=== PATIENT | female | born 1980 | race Caucasian/White ===

== ENCOUNTER 2017-03-10 11:30 | Emergency (ER) | payer BC, MEDICAID ==
[~2017-03-10] VITALS: Ht 165.1 cm; Wt 63.5 kg
[2017-03-10 11:40] VITALS: BP 104/62
[2017-03-10 12:34] LABS: APPEARANCE,URINE TURBID (CLEAR); BILIRUBIN,URINE NEGATIVE (NEGATIVE); BLOOD, URINE NEGATIVE Ery/uL (NEGATIVE); COLOR,URINE YELLOW (YELLOW); KETONES,URINE NEGATIVE (NEGATIVE); LEUKOCYTE ESTERASE ,URINE 2+ (NEGATIVE); NITRITE, URINE NEGATIVE (NEGATIVE); PH,URINE 7.5 (5.0-8.0); PROTEIN,URINE NEGATIVE (NEGATIVE); UGLUCOSE NEGATIVE (NEGATIVE); UROBILINOGEN,URINE 0.2 EU/dL (0.2)
[2017-03-10 12:40] LABS: BACTERIA,URINE 1+ /HPF (None Seen); MUCUS,URINE Few /LPF (None Seen); RBC,URINE 0-2 /HPF (0-2); URINE AMORPHOUS URATE Few /HPF (None Seen)
[2017-03-10] MEDS ORDERED: FLUCONAZOLE (100 MG) 100 MG TABLET PO ONE (13:30)
[2017-03-10] MEDS ORDERED: FLUCONAZOLE (100 MG) 100 MG TABLET ONE (13:57)
== END 2017-03-10 14:09 | disposition home or self-care (01) ==
LOC: ER 11:31
DX: B37.3 Candidiasis of vulva and vagina (principal); R82.99 Other abnormal findings in urine
CPT/HCPCS: 81001; 84703; 87086; 87210; 99284; A4606; Z7610; 81000-TC